=== PATIENT | female | born 1985 | race Caucasian/White ===

== ENCOUNTER 2020-12-20 08:56 | Day surgery (SDC) | payer BC ==
--- NOTE | 2020-12-20 08:24 | HP ---
DATE OF SURGERY: 12/20/2020 HISTORY OF PRESENT ILLNESS: The patient is a 35 year-old who last ten years has off and on increased right upper quadrant sharp pain, nausea and vomiting off and on with spicy and fatty food. No change in bowel movements. Not sure if she has had any jaundice in the past. She denies any abdominal surgeries. PAST MEDICAL HISTORY: TMJ issues. PAST SURGICAL HISTORY: D&C in the past. MEDICATIONS: Astelin spray, fluticasone spray, Probiotic. ALLERGIES: AUGMENTIN. FAMILY HISTORY: Liver disease. SOCIAL HISTORY: She does drink some alcohol abuse. Denies smoking currently. REVIEW OF SYSTEMS: Fourteen systems reviewed. She had some induced migraines in the past. She had some gastroparesis in the past. Other systems negative or noncontributory as above and per preadmission questionnaire. PHYSICAL EXAMINATION: GENERAL: No acute distress. HEENT: Sclerae nonicteric. NECK: No JVD. CHEST: Equal excursion, nonlabored breathing. CVS: Regular rate and rhythm. ABDOMEN: Soft, some mild tenderness right upper quadrant. No peritoneal signs. EXTREMITIES: No significant edema. NEURO: Alert, oriented, moving extremities symmetrically. PSYCH: Appropriate mood and affect. IMPRESSION: Symptomatic biliary colic, acute exacerbation of chronic cholecystitis. I feel the patient will benefit from cholecystectomy. Discussed the options of cholecystectomy versus endoscopy, other studies or procedures. She prefers to go ahead and proceed with cholecystectomy following the questions of gallbladder polyp versus nonmobile stone manager terminal. Given her symptoms she prefers to go ahead and proceed with cholecystectomy, will proceed with laparoscopic cholecystectomy possible open as an outpatient. General risk of bleeding or infection, risk of trocar injury or hernia, risk of bowel, bladder or blood vessel injury, risk of bile leak, bile duct injury, retained stone or sludge possibly requiring further procedure either open or ERCP, general risk of anesthesia, deep venous thrombosis, pulmonary embolism, pneumonia, perioperative risk of aches, pains, bloating, constipation and/or loose stools possibly even chronic in nature, possibility of no improvement in her symptoms possibly requiring further work up, endoscopy, other studies or procedures. She understands and agrees to the planned procedure, will proceed with laparoscopic cholecystectomy with possible open as an outpatient.
[~2020-12-20 08:56] MED LIST: Lactated Ringers 1,000 ML IV ONE; Sensorcaine 0.25% 10 ML ONE
[2020-12-20] MEDS ORDERED: Lactated Ringers 1,000 ML IV ONE (09:42)
[2020-12-20] MEDS ORDERED: Levofloxacin 500MG/100ML D5W 500 MG/100 ML BAG IV ONE (09:42)
[2020-12-20] MEDS ORDERED: CLINDAMYCIN-D5W 900 MG/50 ML*** 900 MG/50 ML BAG IV ONE (09:42)
[2020-12-20] MEDS ORDERED: Levofloxacin 500MG/100ML D5W 500 MG/100 ML BAG IV SCH (09:45)
[2020-12-20] MEDS ORDERED: CLINDAMYCIN-D5W 900 MG/50 ML*** 900 MG/50 ML BAG IV SCH (10:00)
[2020-12-20] MEDS ORDERED: Lactated Ringers 1,000 ML IV SCH (10:00)
[2020-12-20] MEDS ORDERED: Versed 2 MG/2 ML Injection ONE (10:06)
[2020-12-20] MEDS ORDERED: DIPRIVAN 200 MG/20 ML IV ONE (10:06)
[2020-12-20] MEDS ORDERED: Zemuron 100 MG/10 ML ONE (10:06)
[2020-12-20] MEDS ORDERED: SUBLIMAZE 250 MCG/5 ML ONE (10:06)
[2020-12-20] MEDS ORDERED: Xylocaine-Mpf 2% 5 Ml Vial ONE (11:33)
[2020-12-20] MEDS ORDERED: TORAdol 30 mg Injection ONE (12:34)
[2020-12-20] MEDS ORDERED: BRIDION 200MG/2ML IV ONE (13:12)
[2020-12-20] MEDS ORDERED: Zofran 4 MG/2 ML VIAL ONE (13:19)
[2020-12-20] MEDS ORDERED: NORCO 5/325 MG ONE (13:19)
[2020-12-20 13:22] VITALS: O2SAT 98
[2020-12-20] MEDS ORDERED: Zofran 4 MG/2 ML VIAL IV PRN (13:26)
[2020-12-20] MEDS ORDERED: NORCO 5/325 MG PO PRN (13:35)
[2020-12-20 14:00] VITALS: BP 124/72; PULSE 76
--- NOTE | 2020-12-20 14:46 | OP ---
SURGERY DATE/TIME: 12/20/2020 1132 PREOPERATIVE DIAGNOSIS: Acute exacerbation of chronic cholecystitis, question gallbladder polyp. POSTOPERATIVE DIAGNOSIS: Acute exacerbation of chronic cholecystitis, question gallbladder polyp. PROCEDURE: Laparoscopic cholecystectomy. SURGEON: Dr. Flynn Contreras. ANESTHESIA: General. ESTIMATED BLOOD LOSS: Minimal. INDICATIONS: As noted above. Risks and benefits explained in detail but not limited to and consent obtained. DESCRIPTION OF PROCEDURE AND FINDINGS: The patient was taken to the operating room. General anesthesia induced. Abdomen prepped and draped in the usual sterile fashion. After official time out and no disagreement with planned procedure, a transverse incision made at the supraumbilical area. Fascia grasped and pulled upward. Veress needle inserted and tested with saline. Pneumoperitoneum accomplished insufflating opening pressure of 0-15. An 11 mm bladeless port and camera inserted without difficulty followed by two - 5 mm right upper quadrant ports and 5 mm epigastric port. The patient had extensive adhesions and small bowel pulled up towards the top of the gallbladder. Extensive omental adhesions, a lot of chronic inflammation this is carefully dissected posterior lateral to anterior fashion. Slowly and carefully down to the Carbone's pouch. The cystic duct and infundibular area were slowly and carefully well skeletonized until the critical view obtained anteriorly and posteriorly. Once this was accomplished cystic duct and cystic artery clipped x3 and divided in usual fashion. The patient's gallbladder was quite vascular. It required clipping additional two or three small oozing side branches off the cystic artery directly on the gallbladder wall as necessary. The gallbladder is slowly and carefully dissected free. Just prior to releasing from final attachments to the anterior edge of the liver, the liver bed re-inspected. Clips noted in place in cystic duct and cystic artery stumps. No signs of any active bleeding or bile leakage. It was felt there was no benefit from drain placement. Gallbladder released from final attachments to anterior edge of the liver, pulled up into the supraumbilical port site, 10/11 port site, decompressed of bile, pulled free and passed off. The fascial defect closed with puncture closure device with #1 Vicryl. Liver bed was re-inspected one last time. Clips noted in place in cystic duct and cystic artery stumps. No signs of any active bleeding or bile leakage. Copious amount of irrigation accomplished lateral to the liver irrigating clear. At this point pneumoperitoneum decompressed. The wound irrigated out. Skin incision closed with 4-0 Vicryl. Steri-Strips and sterile dressing applied. 0.25% Marcaine local injected along the skin incision fascial defect. The patient tolerated the procedure well. There were no immediate complications. She was transferred to recovery in stable condition. Findings discussed with the family out in the waiting area.
== END 2020-12-20 14:05 | disposition home or self-care (01) ==
LOC: SDC 08:56
PROVIDERS: ATTEND Surgery
DX: K81.0 Acute cholecystitis (principal)
CPT/HCPCS: 84703; J1885; J1956; J2250; J2405; J2704; J3010; A9270-GY